=== PATIENT | female | born 1955 | race Caucasian/White ===

== ENCOUNTER → 2019-05-01 | Day surgery (SDC) | payer OTHER ==
[~2019-05-01] MED LIST: LOSARTAN-HCTZ1 EAC1 PO; METFORMIN HCL500 MG PO; METOPROLOL PO; PERCOCET 5-3251 EACH PO; RECTICARE30 GM TOP
== END | disposition home or self-care (01) ==
LOC: ADM 04-25 10:45 → CIR.AMB 07:10
DX: K64.4 Residual hemorrhoidal skin tags (principal)

== ENCOUNTER 2019-05-08 13:01 | Emergency (ER) | payer OTHER ==
[~2019-05-08] VITALS: Ht 160 cm; Wt 68.0 kg
[2019-05-08] MEDS ORDERED: TOPROL XL50 MG (13:52)
[2019-05-09] MEDS ORDERED: MIRALAX17 GM PO (00:43)
== END 2019-05-09 02:58 | disposition home or self-care (01) ==
LOC: ER 13:01
DX: K59.09 Other constipation (principal)

== ENCOUNTER 2024-02-21 05:33 | Day surgery (SDC) | payer OTHER ==
[~2024-02-21 05:33] MED LIST changes: +LIPITOR40 M1; +MIRALAX17 GM PO; +NORVASC2.5 M1; +PEPCID AC10 MG; +TOPROL XL50 MG
[2024-02-21] MEDS ORDERED: POVIDONE-IODINE 118 ML BOTT TOP ONE (07:34)
[2024-02-21] MEDS ORDERED: DIBUCAINE 30 GM TUBE ONE (07:34)
[2024-02-21] MEDS ORDERED: LIDOCAINE HCL 1%/EPINEPHRINE 20ML VIAL IJ ONE (07:34)
[2024-02-21] MEDS ORDERED: HEMOSTATIC MATRIX 1 KIT KIT TOP ONE ×2 (07:34→08:30)
[2024-02-21] MEDS ORDERED: METRONIDAZOLE/SODIUM CHLORIDE 500 MG/100 ML PIGGYBACK IV ONE ×2 (07:35→08:30)
[2024-02-21] MEDS ORDERED: CEFTRIAXONE SODIUM 2,000 MG VIAL ONE (07:36)
[2024-02-21] MEDS ORDERED: RECTICARE30 GM TOP (08:05)
[2024-02-21] MEDS ORDERED: TRAM1TAB98 PO (08:05)
[2024-02-21] MEDS ORDERED: BUPIVACAINE HCL 30 ML VIAL IJ ONE (08:30)
[2024-02-21] MEDS ORDERED: LIDOCAINE HCL/EPINE 1%-Epi 30ML VIAL IJ ONE (08:30)
[2024-02-21] MEDS ORDERED: CEFTRIAXONE SODIUM 2,000 MG VIAL IV ONE (08:30)
[2024-02-21] MEDS ORDERED: DIBUCAINE 30 GM TUBE RECTAL ONE (08:30)
== END 2024-02-21 12:05 | disposition home or self-care (01) ==
LOC: CIR.AMB 05:33
PROVIDERS: ATTEND Surgery
DX: K60.3 Anal fistula (principal); Z88.5 Allergy status to narcotic agent

== ENCOUNTER 2024-06-30 05:35 | Day surgery (SDC) | payer OTHER ==
[~2024-06-30 05:35] MED LIST changes: +GALZIN25 MG; +OSTERA TABLET1 EACH; +TRAM1TAB98 PO
[2024-06-30] MEDS ORDERED: POVIDONE-IODINE 118 ML BOTT TOP ONE (07:13)
[2024-06-30] MEDS ORDERED: BUPIVACAINE HCL/MPF 0.5% 30ML VIAL ONE (07:13)
[2024-06-30] MEDS ORDERED: DIBUCAINE 30 GM TUBE ONE (07:13)
[2024-06-30] MEDS ORDERED: LIDOCAINE HCL 1%/EPINEPHRINE 20ML VIAL IJ ONE (07:13)
[2024-06-30] MEDS ORDERED: HEMOSTATIC MATRIX 1 KIT KIT TOP ONE (07:13)
[2024-06-30] MEDS ORDERED: CEFTRIAXONE SODIUM 2,000 MG VIAL ONE (07:26)
[2024-06-30] MEDS ORDERED: METRONIDAZOLE/SODIUM CHLORIDE 500 MG/100 ML PIGGYBACK IV ONE (07:27)
[2024-06-30] MEDS ORDERED: PERCOCET 5-3251 EACH PO (08:35)
[2024-06-30] MEDS ORDERED: RECTICARE30 GM TOP (08:36)
[2024-06-30] MEDS ORDERED: DERMOPLAST PAIN78 GM TOP (08:37)
[2024-06-30] MEDS ORDERED: MORPHINE SULFATE 4 MG/ML VIAL IV ONE ×2 (10:00→11:30)
== END 2024-06-30 12:45 | disposition home or self-care (01) ==
LOC: CIR.AMB 05:35
PROVIDERS: ATTEND Surgery
DX: K60.3 Anal fistula (principal); K60.1 Chronic anal fissure; K64.2 Third degree hemorrhoids; R19.5 Other fecal abnormalities; K59.04 Chronic idiopathic constipation; Z88.6 Allergy status to analgesic agent; I10 Essential (primary) hypertension; E11.9 Type 2 diabetes mellitus without complications; J44.9 Chronic obstructive pulmonary disease, unspecified; K59.00 Constipation, unspecified; H52.10 Myopia, unspecified eye